=== PATIENT | female | born 1940 | race Caucasian/White ===

== ENCOUNTER 2018-01-24 07:23 | Inpatient (IN) | payer OTHER ==
[2018-01-04 12:09] VITALS: Ht 162.6 cm; Wt 54.1 kg
--- NOTE | 2018-01-04 12:39 | PAT Medication Instructions ---
Service Date Jan 04, 2018. Current Home Medication List Aspirin (Aspirin), 325 MG PO QAM Cholecalciferol (Vitamin D3), 1 TAB PO QAM Levothyroxine Sodium (Synthroid), 25 MCG PO QAM Vitamin B Cmplx/Vitc/Folic Ac (Nephrocaps), 1 CAP PO QAM Medication Instructions For Your Scheduled Surgery -Check with the surgeon for instructions for: Aspirin (Aspirin), 325 MG PO QAM - Hold the following medications the morning of surgery: Cholecalciferol (Vitamin D3), 1 TAB PO QAM Vitamin B Cmplx/Vitc/Folic Ac (Nephrocaps), 1 CAP PO QAM - Take the following medications the morning of surgery with a sip of water: Levothyroxine Sodium (Synthroid), 25 MCG PO QAM If you have any questions please call us at [phone] or [phone] or [phone]
[2018-01-04 13:18] LABS: BASO % 0.6 %; BASO ABS # 0.03 K/uL (0-0.2); EOS % 5.4 %; EOS ABS # 0.26 K/uL (0-0.5); HEMATOCRIT 40.3 % (37-47); HEMOGLOBIN 13.5 g/dL (12.0-16.0); IG# 0.01 K/uL (0.00-0.02); MEAN CELL VOLUME 86.7 fL (80-100); MEAN CORPUSCULAR HGB CONC 33.5 g/dl (32-36); MEAN PLATELET VOLUME 10.6 fL (7.4-10.4); MONO % 7.3 %; MONO ABS # 0.35 K/uL (0.11-0.59); NEUT % 59.5 %; NEUT ABS # 2.86 K/uL (1.4-6.5); PLATELET COUNT 206 K/uL (130-400); RED CELL DISTRIBUTION WIDTH CV 13.1 % (11.5-14.5); RED CELL DISTRIBUTION WIDTH SD 41.5 fL (36.4-46.3); WHITE BLOOD COUNT 4.81 K/uL (4.8-10.8)
[2018-01-04 13:30] LABS: PTT PATIENT 26.6 SECONDS (21.0-31.0)
--- NOTE | 2018-01-04 13:31 | DIAGNOSTIC IMAGING REPORT ---
TWO VIEW CHEST CLINICAL HISTORY: Preoperative examination. FINDINGS: PA and lateral chest radiographs are compared to study dated 02/14/2009. The heart is top normal for projection and there is atherosclerotic calcification of the thoracic aorta. The pulmonary vasculature is noncongested. Chronic interstitial thickening is similar to previous. No airspace consolidation or pleural effusion is identified. There is no pneumothorax. The skeletal structures are osteopenic. Degenerative change is noted throughout the spine. The bony thorax appears intact. IMPRESSION: No active disease in the chest. Electronically signed by: Gael Larkin M.D. 01/04/2018 1:30 PM Dictated Date/Time: 01/04/2018 1:28 PM
[2018-01-04 13:58] LABS: HEMOGLOBIN A1C 5.5 % (4.5-5.6)
[2018-01-04 14:02] LABS: ALBUMIN 3.9 gm/dl (3.4-5.0); CALCIUM 9.3 mg/dl (8.5-10.1); CREATININE 0.9 mg/dl (0.60-1.20); POTASSIUM 4.1 mmol/L (3.5-5.1)
--- NOTE | 2018-01-05 11:34 | HISTORY & PHYSICAL EXAMINATION ---
DATE OF ADMISSION: 01/24/2018 CHIEF COMPLAINT: Left knee pain. HISTORY OF PRESENT ILLNESS: Meena is a 77-year-old female with a multiple-year history of left knee pain. The patient rates her pain as an 8/10. She has pain with her daily activities. She has limited standing and walking tolerance. Pain is worse with weightbearing. The patient has had home exercise program and NSAIDS without relief. She has failed conservative treatment and would like to proceed with left knee replacement. PAST MEDICAL HISTORY: Thyroid disease and some mild dementia. She denies heart disease, diabetes or DVT. PAST SURGICAL HISTORY: Right TKA. SOCIAL HISTORY: The patient denies alcohol or tobacco use. She lives in a 2-story home. She is and retired. FAMILY HISTORY: Negative for DVT. MEDICATIONS: Levothyroxine, vitamin D and B12. ALLERGIES: IODINE, PENICILLIN AND ZOCOR. REVIEW OF SYSTEMS: See HPI. Ten other systems reviewed, all negative. PHYSICAL EXAMINATION: VITAL SIGNS: Height 5 feet 2 inches, weight 119 pounds. BMI 21. GENERAL: This is a well-developed, well-nourished female who is alert and oriented x3. Mood and affect are appropriate. HEENT: Normocephalic, atraumatic. Mucous membranes are moist and intact. NECK: Supple without lymphadenopathy. HEART: Regular rate and rhythm without murmurs, rubs or gallops. LUNGS: Clear to auscultation without wheezes or rhonchi. ABDOMEN: Soft and nontender. Bowel sounds are equal and active. EXTREMITIES: No ecchymosis, redness or warmth. She has varus deformity. Range of motion is from 3-110 degrees with no laxity. She is neurovascularly intact with +5/5 strength. X-RAY EXAMINATION: AP and lateral views show joint space narrowing and osteophyte formation. IMPRESSION: Degenerative joint disease, left knee. PLAN: The patient will be admitted for a left total knee arthroplasty. We will plan on aspirin for DVT prophylaxis. The patient does have some baseline confusion today in the office. Her family states this is her normal status. Narcotics should be avoided. She will have home health for physical therapy upon discharge.
[2018-01-24] VITALS (8 sets, daily range): BP systolic 118–169; BP diastolic 69–99; PULSE 73–101; TEMP 36.3–36.5; O2SAT 94–99
[~2018-01-24] VITALS: Ht 162.6 cm; Wt 54.1 kg
[~2018-01-24 07:23] MED LIST: ACETAMINOPHEN 500 MG TAB PO SCH; ASPECOTC PO; B-COCAP2 PO; BUPIVACAINE 0.25% 30 ML VIAL ONE; BUPIVACAINE 0.5 % 5 MG/1 ML PF 10ML VIAL ONE; CHOL1000 PO; CLINDAMYCIN 600 MG/54 ML D5W 54 ML IV SCH; CeleBREX 200 MG CAP PO SCH; DEXAMETHASONE 4 MG TAB PO SCH; FAMOTIDINE 20 MG TAB PO SCH; GABAPENTIN 300 MG CAP PO SCH; LACTATED RINGER'S 1000ML 1,000 ML IV SCH; LACTATED RINGER'S 1000ML 500 ML IV SCH; LEVO25TA PO; METOCLOPRAMIDE HCL 10 MG TAB PO SCH; ROPIVACAINE 5MG/ML 30 ML 150 MG, BUPIVACAINE 0.5% MPF INJ 30 ML, EpINEphrine HCL INJ 0.... INFIL SCH
[2018-01-24] MEDS ORDERED: FENTANYL CITRATE INJ 50 MCG/1 ML 2 ML VIAL ONE (07:24)
[2018-01-24] MEDS ORDERED: MIDAZOLAM HCL 1 MG/ML 2ML VIAL ONE ×2 (07:24→10:08)
--- NOTE | 2018-01-24 08:44 | History & Physical Bridge Note ---
H&P Re-Evaluation Bridge Note: I have examined the patient, reviewed the History & Physical and in the interval since the performance of the History & Physical I have noted the following changes of clinical significance: No changes noted
[2018-01-24] MEDS ORDERED: ORTHO JOINT ANESTHETIC ONE (09:31)
[2018-01-24] MEDS ORDERED: BACITRACIN 50000 UNIT VIAL ONE (09:31)
[2018-01-24] MEDS: TRANEXAMIC ACID INJ 1,000 MG x 2 Bags IV SCH ×4 (09:33→10:45)
[2018-01-24] MEDS ORDERED: MoRPHine SULFATE 10 MG/ML CARP/VIAL IV PRN ×2 (10:15→13:30)
[2018-01-24] MEDS ORDERED: ATROPINE SULFATE 0.1 MG/ML 5ML SYR IV PRN (10:15)
[2018-01-24] MEDS ORDERED: ONDANSETRON INJ 2 MG/ML 2 ML VIAL IV PRN ×2 (10:15→11:45)
[2018-01-24] MEDS ORDERED: PHENYLEPHRINE 100MCG/ML 5ML SYR IV PRN (10:15)
[2018-01-24] MEDS ORDERED: KETOROLAC TROMETHAMINE 15 MG/ML VIAL IV. PRN ×2 (10:15→11:45)
[2018-01-24] MEDS ORDERED: EpHEDrine SULFATE INJ 50 MG/ML AMP IV PRN (10:15)
--- NOTE | 2018-01-24 10:49 | [facility] Post Operative Brief Note ---
Immediate Operative Summary Operative Date Jan 24, 2018. Pre-Operative Diagnosis Degenerative Joint Disease, Left Knee Post-Operative Diagnosis same as preop Procedure(s) Performed Left Total Knee Arthroplasty, Cemented utilizing Soto nephew journey 2 non block total knee arthroplasty size 3 femur 3 tibia 9 Marlena [address] Tyshawn Butcher Acute Care Occupational Therapist Surgeon(s) Julio Antony PA-C Estimated Blood Loss 5ML Findings Consistent with Post-Op Diagnosis Specimens Permanent Solution: A.) Left Knee Bone and Tissue Anesthesia Type MAC Spinal Regional Complication(s) none Disposition Disposition: Recovery Room / PACU Overlapping Procedure I was present for: the critical portions of procedure. I was immediately available: during the entire case Back up surgeon: was not required during procedure
--- NOTE | 2018-01-24 10:51 | [facility] Operative Report ---
Operative Report Operative Date Jan 24, 2018. Pre-Operative Diagnosis Degenerative Joint Disease, Left Knee Post-Operative Diagnosis same as preop Procedure(s) Performed Left Total Knee Arthroplasty, Cemented utilizing Soto nephew journey 2 non block total knee arthroplasty size 3 femur 3 tibia 9 Marlena [address] 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 left knee show no response to conservative therapy getting physical therapy anti-inflammatories relative rest activity modifications time surgery noted evidence of [id number] changes sclerosis and marginal osteophytes there was some mild lucency or ligamentous laxity of the medial collateral ligament patient presents after failed attempts at conservative management for total knee arthroplasty Specimens Permanent Solution: A.) Left Knee Bone and Tissue Anesthesia Type MAC Spinal Regional Complication(s) none Disposition Recovery Room / PACU Indications Patient presents for a total knee arthritis after failing attempts to conservative management including physical therapy anti-inflammatories relative rest activity modifications corticosteroid injections Visco supplementations she has a bone the bone eburnated medial compartment as well as patellofemoral disease pseudo-ligamentous laxity as well as joint line pain with crepitation on clinical examination Description of Procedure After proper prepping and draping of the left lower extremity anterior midline incision was made over the region of the extensor extensor mechanism after meticulous hemostasis was obtained and maintained in subcutaneous tissues a medial parapatellar incision was made The patella was subluxed lateralward the medial lateral gutter were cleaned from any hypertrophic synovitis and scar tissue of the distal femoral block was placed and the distal femoral osteotomy cut was made subsequently the chamfers anterior and posterior osteotomy cuts were made utilizing the 4-in-1 block the tibia was subsequently subluxed anteriorward medial and ateral meniscal remnants were excised in their entirety remnants of the anterior and posterior cruciate ligaments were excised in their entirety excellent exposure of the proximal tibia was obtained the tibial osteotomy guide was placed on the proximal tibial osteotomy cut was made once again the knee was irrigated with copious amounts of sterile saline solution the patella was subsequently everted lateralward thickened scar tissue around the patella was removed the patella was subsequently cut utilizing a freehand technique and was drilled prepared for final preparation and placement of patella socially flexion-extension gaps were checked and the equal and symmetric trials were placed to the appropriate femoral and tibial trials with poly-spacer being placed for equal flexion and extension gaps and full range of motion including extension to 0 and flexion to 140 the trial components after having been taken to recovery range of motion was subsequently removed meticulous hemostasis was obtained and maintained subsequently a knee block injection of joint cocktail including ropivacaine 0.5% 150 mg. Bupivacaine 0.5 % epinephrine 1-200,030 mL's toradol 30 mg dexamethasone 4 mg ketamine 10 mg clonidine 100 micrograms normal saline solution 30 mg was infiltrated into the soft tissues of the posterior knee medial lateral gutters and periosteal synovium special attention was paid to protect neurovascular structures at all times subsequently trial components having been removed the knee was irrigated with sterile saline solution. debris was removed the proximal tibia was subsequently prepared and was made ready for the placement of the tibial component tibial component was also cemented and tamped into position the femoral component was subsequently placed and cemented in the position the patellar component was subsequently cemented in position because hemostasis once again obtained and maintained wound having been thoroughly irrigated with debridement and debridement lavage was performed as well as a medial parapatellar incision closed with #1 Vicryl in interrupted fashion subcutaneous was closed with #2 Vicryl skin was closed with skin clips. PA-C was necessary for prepping and drapping as well as wound closure of deep fascia Sub cutaneous tissue and skin and was necessary for the case. A sterile compressive dressing was placed patient was taken to recovery in stable condition of report dictated by Hadley I attest to the content of the Intraoperative Record and any orders documented therein. Any exceptions are noted below. I attest to the content of the Intraoperative Record and any orders documented therein. Any exceptions are noted below.
[2018-01-24] MEDS ORDERED: MoRPHine SULFATE 2 MG/ML CARP IV PRN ×2 (11:45→13:30)
[2018-01-24] MEDS ORDERED: OXYCODONE HCL IR 5 MG TAB (IMMEDIATE RELEASE) PO PRN (11:45)
[2018-01-24] MEDS ORDERED: SOD PHOSPHATE/SOD BIPHOSPHATE ENEMA 132 ML BTL PR PRN (11:45)
[2018-01-24] MEDS ORDERED: ZOLPIDEM TARTRATE 5 MG TAB PO PRN (11:45)
[2018-01-24] MEDS ORDERED: MAGNESIUM HYDROXIDE SUSP 30 ML UDC PO PRN (11:45)
[2018-01-24] MEDS ORDERED: BISACODYL 10 MG SUPP PR PRN (11:45)
[2018-01-24] MEDS ORDERED: ALUMINUM/MAGNESIUM/SIMETH (MAALOX MAX) 30 ML UDC PO PRN (11:45)
--- NOTE | 2018-01-24 12:16 | DIAGNOSTIC IMAGING REPORT ---
L KNEE 1 OR 2 VIEWS ROUTINE HISTORY: 77 years-old Female AP/LATERAL IN PACU LEFT KNEE left knee total joint arthroplasty. History of degenerative joint disease. COMPARISON: Left knee radiographs 12/12/2017 TECHNIQUE: 2 views of the left knee FINDINGS: Postoperative changes from left knee total joint arthroplasty with patellar resurfacing. Alignment is satisfactory. No periprosthetic fracture or retained foreign body. Surgical drain is in place. Expected postsurgical soft tissue swelling and deep tissue air. IMPRESSION: Left knee total joint arthroplasty and patellar resurfacing with satisfactory alignment. The above report was generated using voice recognition software. It may contain grammatical, syntax or spelling errors. Electronically signed by: Cody Kaur M.D. 01/24/2018 12:15 PM Dictated Date/Time: 01/24/2018 12:13 PM
--- NOTE | 2018-01-24 12:58 | Anesthesiology Progress Note ---
Anesthesia Post Op Note Date & Time Jan 24, 2018 at 12:57 Vital Signs Pain Intensity: 0 Vital Signs Past 12 Hours Date Time Temp Pulse Resp B/P (MAP) Pulse Ox O2 Delivery O2 Flow Rate FiO2 01/24/18 12:36 70 17 122/65 99 01/24/18 12:36 71 17 01/24/18 12:31 69 17 01/24/18 12:31 68 17 113/66 99 01/24/18 12:26 69 17 117/66 99 01/24/18 12:26 69 17 01/24/18 12:21 68 18 132/68 100 01/24/18 12:21 68 18 01/24/18 12:16 67 16 01/24/18 12:16 69 16 127/69 100 01/24/18 12:11 69 14 118/65 100 01/24/18 12:11 68 14 01/24/18 12:10 69 17 01/24/18 12:10 70 17 99 01/24/18 12:06 130/78 01/24/18 12:05 71 22 100 01/24/18 12:05 71 22 01/24/18 12:01 137/66 01/24/18 12:00 68 21 01/24/18 12:00 70 21 100 01/24/18 11:59 68 20 100 01/24/18 11:59 69 20 01/24/18 11:57 138/67 01/24/18 11:54 72 20 01/24/18 11:54 72 20 100 01/24/18 11:51 132/86 01/24/18 11:49 72 21 01/24/18 11:49 71 21 100 01/24/18 11:48 72 21 01/24/18 11:48 72 21 100 01/24/18 11:46 138/72 01/24/18 11:43 71 20 100 01/24/18 11:43 71 20 01/24/18 11:41 133/66 01/24/18 11:38 76 20 100 01/24/18 11:38 76 20 01/24/18 11:37 130/63 01/24/18 11:34 144/65 01/24/18 11:33 85 19 99 01/24/18 11:33 36.0 78 16 144/65 99 Nasal Cannula 2 01/24/18 11:33 77 19 01/24/18 07:44 36.5 73 16 169/90 96 Room Air Notes Mental Status: alert / awake / arousable, participated in evaluation Pt Amnestic to Procedure: Yes Nausea / Vomiting: adequately controlled Pain: adequately controlled Airway Patency, RR, SpO2: stable & adequate BP & HR: stable & adequate Hydration State: stable & adequate Anesthetic Complications: no major complications apparent
[2018-01-24] MEDS ORDERED: MoRPHine SULFATE 4 MG/ML 1 ML CARP\\VIAL IV PRN (13:30)
[2018-01-24] MEDS: D5W AND 1/2NSS + 20MEQ KCL 1,000 ML IV SCH ×2 (14:15→23:59)
[2018-01-24] MEDS: CLINDAMYCIN IV 600 MG in DEXTROSE 5% 50ML 50 ML IV SCH (17:37)
[2018-01-24] MEDS: ACETAMINOPHEN 500 MG TAB PO SCH (21:08)
[2018-01-24] MEDS: DOCUSATE SODIUM 100 MG CAP PO SCH (21:08)
[2018-01-24] MEDS: ASPIRIN 81 MG ECTAB PO SCH (21:08)
[2018-01-24] MEDS: SENNA 8.6 MG TAB PO SCH (21:09)
[2018-01-25] MEDS: CLINDAMYCIN IV 600 MG in DEXTROSE 5% 50ML 50 ML IV SCH (02:09)
[2018-01-25 03:41] VITALS: BP 120/68; PULSE 84; TEMP 36.4; O2SAT 97
[2018-01-25] MEDS: LEVOTHYROXINE 25 MCG TAB PO SCH (05:26)
[2018-01-25] MEDS: ACETAMINOPHEN 500 MG TAB PO SCH ×3 (05:26→21:56)
[2018-01-25 07:07] LABS: HEMATOCRIT 31.1 % (37-47); HEMOGLOBIN 10.6 g/dL (12.0-16.0); MEAN CELL VOLUME 86.4 fL (80-100); MEAN CORPUSCULAR HEMOGLOBIN 29.4 pg (25-34); MEAN CORPUSCULAR HGB CONC 34.1 g/dl (32-36); MEAN PLATELET VOLUME 10.7 fL (7.4-10.4); PLATELET COUNT 172 K/uL (130-400); RED CELL DISTRIBUTION WIDTH SD 40.8 fL (36.4-46.3); WHITE BLOOD COUNT 16.19 K/uL (4.8-10.8)
--- NOTE | 2018-01-25 07:24 | Orthopedic Progress Note ---
Orthopedic Progress Note Date of Service Jan 25, 2018. Subjective Post OP Day: 1 Reports: feeling well Additional Notes: Sitting at the edge of the bed. Pleasant but with h/o dementia. Pt states she' s mad at her because he dropped her off and said he would be right back. No complaints presently. Pain controlled. States she's hoping to go home with home health services. Answers some questions appropriately. Objective calves soft nontender, N/V intact, dressing C/D/I, toes mobile, hemovac drainage (100ml latest shift) Date Time Temp Pulse Resp B/P (MAP) Pulse Ox O2 Delivery O2 Flow Rate FiO2 01/25/18 03:41 36.4 84 16 120/68 (85) 97 Room Air 01/25/18 00:00 Room Air 01/24/18 23:00 36.4 91 16 125/85 (98) 97 Room Air 01/24/18 19:20 36.4 101 18 145/99 (114) 98 Room Air 01/24/18 16:16 36.4 95 18 148/93 (111) 96 Room Air 01/24/18 15:40 Room Air 01/24/18 15:15 36.4 89 18 144/83 (103) 97 Room Air 01/24/18 14:10 93 18 125/82 (96) 97 Room Air 1.0 01/24/18 13:39 83 18 144/79 (100) 99 Nasal Cannula 1.0 01/24/18 13:10 Nasal Cannula 2.0 01/24/18 13:10 36.3 76 18 118/69 (85) 94 Nasal Cannula 2.0 01/24/18 13:10 Nasal Cannula 2.0 01/24/18 12:58 37.0 98 Nasal Cannula 2 01/24/18 12:57 70 18 01/24/18 12:57 69 18 98 01/24/18 12:56 115/67 01/24/18 12:52 70 17 98 01/24/18 12:52 69 17 01/24/18 12:51 122/66 01/24/18 12:47 71 21 98 01/24/18 12:47 73 21 01/24/18 12:46 118/65 01/24/18 12:42 70 17 99 01/24/18 12:42 69 17 01/24/18 12:41 130/71 01/24/18 12:37 85 29 99 01/24/18 12:37 84 29 01/24/18 12:36 70 17 122/65 99 01/24/18 12:36 71 17 01/24/18 12:31 69 17 18 12:31 68 17 113/66 99 18 12:26 69 17 117/66 99 01/24/18 12:26 69 17 01/24/18 12:21 68 18 132/68 100 01/24/18 12:21 68 18 01/24/18 12:16 67 16 01/24/18 12:16 69 16 127/69 100 01/24/18 12:11 69 14 118/65 100 01/24/18 12:11 68 14 01/24/18 12:10 69 17 01/24/18 12:10 70 17 99 01/24/18 12:06 130/78 01/24/18 12:05 71 22 100 01/24/18 12:05 71 22 01/24/18 12:01 137/66 01/24/18 12:00 68 21 01/24/18 12:00 70 21 100 01/24/18 11:59 68 20 100 01/24/18 11:59 69 20 01/24/18 11:57 138/67 01/24/18 11:54 72 20 01/24/18 11:54 72 20 100 01/24/18 11:51 132/86 01/24/18 11:49 72 21 01/24/18 11:49 71 21 100 01/24/18 11:48 72 21 01/24/18 11:48 72 21 100 01/24/18 11:46 138/72 01/24/18 11:43 71 20 100 01/24/18 11:43 71 20 18 11:41 133/66 01/24/18 11:38 76 20 100 18 11:38 76 20 18 11:37 130/63 18 11:34 144/65 01/24/18 11:33 85 19 99 01/24/18 11:33 36.0 78 16 144/65 99 Nasal Cannula 2 01/24/18 11:33 77 19 01/24/18 07:44 36.5 73 16 169/90 96 Room Air Laboratory Results 24 Hours: Test 01/25/18 06:47 Hematocrit 31.1 % Hemoglobin 10.6 g/dL Prothromb Time International Ratio 1.0 Prothrombin Time 11.0 SECONDS Assessment & Plan Assessment: POD 1 s/p Left TKA Dementia - pt will need watched closely due to her wanting to get OOB without help Discussed with nursing that we should try and stick to Tramadol and Tylenol for pain control if possible. Plan: PT/OT ? Home with HH vs need for SNF Inhouse Planning Pain Management: Celebrex, Ultram, Morphine, PO Tylenol, Oxy IR DVT Prophylaxis: TEDs, SCDs, ASA Discharge Planning Discharge Planning: uncertain
[2018-01-25 07:32] VITALS: BP 137/72; PULSE 77; TEMP 36.5; O2SAT 100
[2018-01-25 07:37] LABS: CALCIUM 8.6 mg/dl (8.5-10.1); CREATININE 1.01 mg/dl (0.60-1.20); POTASSIUM 4.2 mmol/L (3.5-5.1)
[2018-01-25] MEDS: MULTIVITAMIN TAB PO SCH (08:53)
[2018-01-25] MEDS: DOCUSATE SODIUM 100 MG CAP PO SCH ×2 (08:53→21:55)
[2018-01-25] MEDS: PANTOprazole SOD 40 MG TAB PO SCH (08:53)
[2018-01-25] MEDS: ASPIRIN 81 MG ECTAB PO SCH ×2 (08:53→21:55)
[2018-01-25] MEDS: D5W AND 1/2NSS + 20MEQ KCL 1,000 ML IV SCH (09:45)
[2018-01-25] MEDS: TRAMADOL HCL 50 MG TAB PO PRN ×3 (09:57→18:39)
[2018-01-25 10:35] VITALS: BP 125/71; PULSE 78; TEMP 36.5; O2SAT 98
[2018-01-25 15:39] VITALS: BP 118/67; PULSE 81; TEMP 36.8; O2SAT 98
[2018-01-25 17:05] VITALS: TEMP 36.4
[2018-01-25 18:29] VITALS: BP 149/78; PULSE 74; TEMP 36.8; O2SAT 100
[2018-01-25] MEDS ORDERED: NURSING VERBAL MED ORDER ONE (20:00)
[2018-01-25] MEDS ORDERED: HALOPERIDOL LACTATE 5 MG/ML 1 ML VIAL IM STA (20:03)
[2018-01-25] MEDS: CeleBREX 200 MG CAP PO SCH (21:55)
[2018-01-25] MEDS: SENNA 8.6 MG TAB PO SCH (21:56)
[2018-01-26 01:43] VITALS: BP 124/75; PULSE 74; TEMP 37; O2SAT 100
[2018-01-26] MEDS: LEVOTHYROXINE 25 MCG TAB PO SCH (05:57)
[2018-01-26] MEDS: TRAMADOL HCL 50 MG TAB PO PRN (05:58)
[2018-01-26] MEDS: ACETAMINOPHEN 500 MG TAB PO SCH (05:58)
[2018-01-26 06:42] VITALS: BP 137/78; PULSE 83; TEMP 36.6; O2SAT 95
--- NOTE | 2018-01-26 08:08 | Orthopedic Progress Note ---
Orthopedic Progress Note Date of Service Jan 26, 2018. Subjective Post OP Day: 2 Reports: feeling well, Denies: complaints Objective calves soft nontender, N/V intact, incision C/D/I, toes mobile Date Time Temp Pulse Resp B/P (MAP) Pulse Ox O2 Delivery O2 Flow Rate FiO2 01/26/18 07:32 Room Air 01/26/18 06:42 36.6 83 22 137/78 (97) 95 Room Air 01/26/18 01:43 37.0 74 16 124/75 (91) 100 Room Air 01/26/18 01:30 Room Air 01/25/18 18:29 36.8 74 16 149/78 (101) 100 Room Air 01/25/18 17:05 36.4 01/25/18 15:45 Room Air 01/25/18 15:39 36.8 81 16 118/67 (84) 98 Room Air 01/25/18 10:35 36.5 78 16 125/71 (89) 98 Room Air Assessment & Plan Assessment: POD 2 s/p Left TKA Dementia - Doing well; pt's felt she was baseline yesterday. Plan: PT/OT Family feels that they can take care of her at home. Plan for dc to home today. Inhouse Planning Pain Management: Celebrex, Ultram, Morphine, PO Tylenol, Oxy IR DVT Prophylaxis: TEDs, SCDs, ASA Discharge Planning Discharge Planning: home with oppt
[2018-01-26] MEDS ORDERED: ULT50X PO (08:12)
[2018-01-26] MEDS ORDERED: ASPI-461 PO (08:12)
[2018-01-26] MEDS ORDERED: ACET-24 PO (08:12)
[2018-01-26] MEDS ORDERED: SENN-61 PO (08:12)
--- NOTE | 2018-01-26 08:18 | Discharge Instructions ---
Discharge Instructions Date of Service Jan 26, 2018. Admission Reason for Admission: Left Knee Osteoarthritis Discharge Discharge Diagnosis / Problem: Left Knee Osteoarthritis Discharge Goals Goal(s): Decrease discomfort, Improve function Activity Recommendations Activity Limitations: per Instructions/Follow-up section Weightbearing Status: Left weightbearing (as tolerated) . Instructions / Follow-Up Instructions / Follow-Up ACTIVITY RECOMMENDATIONS: SELF CARE INSTRUCTIONS AFTER TOTAL KNEE REPLACEMENT A. You may need to continue a physical therapy program after discharge from the hospital. There are several options available to you. Your doctor will assist you in selecting the best one for you. 1. An out-patient facility 2 to 3 times a week for therapy or home therapy. 2. Continue working on all exercises taught to you in the hospital. Your goals should be to increase bending of your knee to 90 degrees and beyond and to fully straighten your knee. B. You may progress at your own pace from walking with a walker or crutches to a cane; then to no assistive devices. C. Make walking a part of your daily routine. Be up as much as comfortable with rest periods throughout the day. Rest with leg elevation is very important. Use the ice wrap frequently for the first 3-4 weeks. D. There are no restrictions on activities. You may ride in a car, shop, participate in private inquiry agent and all social activities. E. Wear the long elastic stockings (ILIR hose) 20 hours a day for 2 weeks after surgery. They can be removed several times a day for laundering and for a bath. F. You may shower, no tub baths until cleared by your doctor. SPECIAL CARE INSTRUCTIONS: VERY IMPORTANT TO READ AND REVIEW A. There are a few signs you need to watch for after you are home. Call [facility] if you notice any of the followin. Increased severe knee pain. Some pain is expected especially when you exercise. 2. Increased swelling in your leg or knee; pain or swelling of the calf muscle in either lower leg. 3. Any fluid drainage from the incision. 4. Shortness of breath or chest pain. B. Please call [facility] at if you have any concerns or questions about your operation or recovery. The doctor or his nurse will return your call promptly. C. You must take antibiotics before dental work, bladder, bowel or other surgery. Your doctor will provide you with a permanent care to carry describing this precaution. IMPORTANT: * REMEMBER TO TAKE ASPIRIN, 81 MG, TWICE DAILY FOR 4 WEEKS UNLESS OTHERWISE DIRECTED. THIS IS YOUR BLOOD THINNER. * CALL IF INCREASED PAIN, REDNESS, DRAINAGE OR FEVER GREATER THAT 101. * WEAR ILIR HOSE 20 HOURS PER DAY FOR 2 WEEKS. * DERMABOND Prineo- This is a mesh tape dressing that is covered with glue. It should remain in place until the incision is properly healed, usually 10-14 days. This dressing is designed to naturally slough off. You may trim the excess mesh tape as it peels off. Incision may be briefly wet in a shower. Dry immediately by blotting with a clean, dry towel. Do not bath or swim until instructed by your doctor. Do not scratch, rub, or pick at the dressing. Do not apply any topical ointments or lotions until dressing is completely removed and/or instructed by your doctor. There may be a small piece of suture material at one end of your incision. Do not pull or trim this. If it is bothersome or catching on clothing, you may cover it with a band-aid. . FOLLOW UP VISIT: If appointment is not already scheduled: Please call [facility] to make a follow-up appointment for 2 weeks after your surgery at . Current Hospital Diet Patient's current hospital diet: Regular Diet Discharge Diet Recommended Diet: Regular Diet Procedures Procedures Performed: Left Total Knee Arthroplasty, Cemented utilizing Soto nephew journey 2 non block total knee arthroplasty size 3 femur 3 tibia 9 Marlena 29 oval patella Pending Studies Studies pending at discharge: no Laboratory Results Hemoglobin A1c Test 01/04/18 12:52 Range/Units Estimated Average Glucose 111 mg/dl Hemoglobin A1c 5.5 4.5-5.6 % Medical Emergencies . Who to Call and When: Medical Emergencies: If at any time you feel your situation is an emergency, please call 911 immediately. . Non-Emergent Contact Non-Emergency issues call your: Surgeon Call Non-Emergent contact if: temperature is above 101.5, your pain is not controlled, your pain is worsening, wound has increased drainage, wound has increased redness . "Provider Documentation" section prepared by Tin Nelson. . [place] Drug Monitoring Program Search Results: patient reviewed within database, no issues identified
[2018-01-26] MEDS: MULTIVITAMIN TAB PO SCH (09:02)
[2018-01-26] MEDS: DOCUSATE SODIUM 100 MG CAP PO SCH (09:02)
[2018-01-26] MEDS: PANTOprazole SOD 40 MG TAB PO SCH (09:02)
[2018-01-26] MEDS: CeleBREX 200 MG CAP PO SCH (09:03)
[2018-01-26] MEDS: ASPIRIN 81 MG ECTAB PO SCH (09:03)
[2018-01-26 10:50] VITALS: BP 137/78; PULSE 83; TEMP 36.6; O2SAT 95
--- NOTE | 2018-01-26 17:18 | Progress Note ---
Progress Note Date of Service Jan 26, 2018. Progress Note Patient seen and evaluated after given discharge instructions. Patient is hemodynamically stable. Reports she recalls the events of last night and just didn't want to stay in the hospital. She feels at baseline. Family at bedside reports she is at baseline mentation. Was given Haldol last night and no adverse effects. She is up ambulating in the room and steady on her feet. Reports minimal pain controlled on medication. She verbalizes no complaints. Medically optimal for discharge home. Recommendations to continue home medications. Did express to family that Tramadol can cause alterations in mentations and to be mindful of this. Also enforced not to drive when using this medication as patient states she still drives. No obvious signs of infection to explain last nights episode and likely this was from hospital delirium in setting of underlying dementia.
--- NOTE | 2018-01-27 08:42 | Discharge Summary ---
Orthopedic Discharge Summary Admission Date/Reason Jan 24, 2018 at 08:44 Left Knee Osteoarthritis. Discharge Date/Disposition Jan 26, 2018 Home with services Diagnosis Principal Diagnosis: PAST MEDICAL HISTORY: Thyroid disease and dementia Procedure(s) Performed Left Total Knee Arthroplasty, Cemented utilizing Soto neph journey 2 non block total knee arthroplasty size 3 femur 3 tibia 9 Marlena 29 oval patella Consultations NONE Medication Reconciliation New Medications: Acetaminophen (Sb Non-Aspirin Extra Stre) 500 Mg Tab 1000 MG PO Q8H for 14 Days, #84 TAB Aspirin (Aspirin) 81 Mg Tab 81 MG PO BID for 30 Days, #60 TAB Senna (Senokot) 8.6 Mg Tab 17.2 MG PO HS, #30 TAB Tramadol HCl (Tramadol HCl) 50 Mg Tab 50-100 MG PO Q4H PRN for Pain, #24 TAB Continued Medications: Cholecalciferol (Vitamin D3) 1,000 Unit Tab 1 TAB PO QAM for 90 Days, #90 TAB 3 Refills Levothyroxine Sodium (Synthroid) 25 Mcg Tab 25 MCG PO QAM, TAB Vitamin B Cmplx/Vitc/Folic Ac (Nephrocaps) Cap 1 CAP PO QAM for 90 Days, #90 CAP 3 Refills Discontinued Medications: Aspirin (Aspirin) 325 Mg Tab 325 MG PO QAM Admission Physical Exam As per Admitting History & Physical. Hospital Course Patient was a same day admission after undergoing a successful left TKA. She tolerated the procedure well. Post-operatively, her activity was progressed and well tolerated. Please refer to daily progress notes and PT notes for complete details. After exam on 01/26/18, patient felt to be stable for discharge home with home health PT. Patient will f/u in the office in 2 weeks for further evaluation including x-rays and incision check, sooner if having any issues or concerns. Below are pertinent labs/studies during their hospital stay: Last Resulted CBC 01/25/18 06:47 Last Resulted BMP 01/25/18 06:47 Last Vital Signs Documentation Date Time Temp Pulse Resp B/P (MAP) Pulse Ox O2 Delivery O2 Flow Rate FiO2 01/26/18 10:50 36.6 83 22 95 Room Air 01/26/18 06:42 137/78 (97) 01/24/18 14:10 1.0 Discharge Instructions ACTIVITY RECOMMENDATIONS: SELF CARE INSTRUCTIONS AFTER TOTAL KNEE REPLACEMENT A. You may need to continue a physical therapy program after discharge from the hospital. There are several options available to you. Your doctor will assist you in selecting the best one for you. 1. An out-patient facility 2 to 3 times a week for therapy or home therapy. 2. Continue working on all exercises taught to you in the hospital. Your goals should be to increase bending of your knee to 90 degrees and beyond and to fully straighten your knee. B. You may progress at your own pace from walking with a walker or crutches to a cane; then to no assistive devices. C. Make walking a part of your daily routine. Be up as much as comfortable with rest periods throughout the day. Rest with leg elevation is very important. Use the ice wrap frequently for the first 3-4 weeks. D. There are no restrictions on activities. You may ride in a car, shop, participate in enrollment services dean and all social activities. E. Wear the long elastic stockings (ILIR hose) 20 hours a day for 2 weeks after surgery. They can be removed several times a day for laundering and for a bath. F. You may shower, no tub baths until cleared by your doctor. SPECIAL CARE INSTRUCTIONS: VERY IMPORTANT TO READ AND REVIEW A. There are a few signs you need to watch for after you are home. Call [facility] if you notice any of the followin. Increased severe knee pain. Some pain is expected especially when you exercise. 2. Increased swelling in your leg or knee; pain or swelling of the calf muscle in either lower leg. 3. Any fluid drainage from the incision. 4. Shortness of breath or chest pain. B. Please call [facility] at if you have any concerns or questions about your operation or recovery. The doctor or his nurse will return your call promptly. C. You must take antibiotics before dental work, bladder, bowel or other surgery. Your doctor will provide you with a permanent care to carry describing this precaution. IMPORTANT: * REMEMBER TO TAKE ASPIRIN, 81 MG, TWICE DAILY FOR 4 WEEKS UNLESS OTHERWISE DIRECTED. THIS IS YOUR BLOOD THINNER. * HIGH RISK PATIENTS MAY BE PRESCRIBED A STRONGER BLOOD THINNER. THIS WILL BE PROVIDED AT DISCHARGE. * CALL IF INCREASED PAIN, REDNESS, DRAINAGE OR FEVER GREATER THAT 101. * WEAR ILIR HOSE 20 HOURS PER DAY FOR 2 WEEKS. * DERMABOND Prineo- This is a mesh tape dressing that is covered with glue. It should remain in place until the incision is properly healed, usually 10-14 days. This dressing is designed to naturally slough off. You may trim the excess mesh tape as it peels off. Incision may be briefly wet in a shower. Dry immediately by blotting with a clean, dry towel. Do not bath or swim until instructed by your doctor. Do not scratch, rub, or pick at the dressing. Do not apply any topical ointments or lotions until dressing is completely removed and/or instructed by your doctor. There may be a small piece of suture material at one end of your incision. Do not pull or trim this. If it is bothersome or catching on clothing, you may cover it with a band-aid. FOLLOW UP VISIT: If appointment is not already scheduled: Please call [facility] to make a follow-up appointment for 2 weeks after your surgery at .
== END 2018-01-26 12:17 | disposition home or self-care (01) | DRG 470 ==
LOC: C.ACU 07:23 → C.3E 08:44 → ENRESERV 12:19 → C.3E 23:12
PROVIDERS: ADMIT Orthopaedic Surgery; ATTEND Orthopaedic Surgery
PROC: 0SRD0J9 Replacement of Left Knee Joint with Synthetic Substitute, Cemented, Open Approach (ICD-10-PCS; principal; 2018-01-24 09:45)
DX: M17.12 Unilateral primary osteoarthritis, left knee (principal); E07.9 Disorder of thyroid, unspecified; F03.90 Unspecified dementia, unspecified severity, without behavioral disturbance, psychotic disturbance, mood disturbance, and anxiety; Z96.651 Presence of right artificial knee joint; Z79.899 Other long term (current) drug therapy; Z88.0 Allergy status to penicillin; Z88.8 Allergy status to other drugs, medicaments and biological substances